=== PATIENT | male | born 1980 | race Two or more races ===

== ENCOUNTER 2021-09-02 19:22 | Emergency (ER) | payer OTHER ==
[~2021-09-02] VITALS: Ht 170.2 cm; Wt 107.0 kg
[2021-09-02] MEDS ORDERED: ZESTRIL2.5 MG (19:39)
== END 2021-09-03 00:01 | disposition home or self-care (01) ==
LOC: ER 19:22
DX: B34.9 Viral infection, unspecified (principal); Z03.818 Encounter for observation for suspected exposure to other biological agents ruled out; D72.821 Monocytosis (symptomatic); I10 Essential (primary) hypertension